=== PATIENT | male | born 1970 | race Caucasian/White ===

== ENCOUNTER 2024-02-02 17:55 | Emergency (ER) | payer SELFPAY ==
[~2024-02-02] VITALS: Ht 177.8 cm; Wt 86.6 kg
[2024-02-02 17:58] VITALS: BP_SYST 158; PULSE 104; RESP 17; TEMP 98.8; O2SAT 97
[2024-02-02 18:48] LABS: BILIRUBIN,URINE NEGATIVE (NEGATIVE); CLARITY/URINE CLEAR (CLEAR); COLOR,URINE YELLOW (YELLOW); GLUCOSE,URINE NEGATIVE (NEGATIVE); KETONES,URINE NEGATIVE (NEGATIVE); LEUKOCYTE ESTERASE ,URINE NEGATIVE (NEGATIVE); NITRITE, URINE NEGATIVE (NEGATIVE); PROTEIN URINE TRACE (NEGATIVE)
[2024-02-02 19:03] LABS: BLOOD, URINE TRACE (NEGATIVE)
[2024-02-02] MEDS: NALOXONE HCL 2 MG/2 ML SYR IVP ONE (19:03)
[2024-02-02] MEDS: NACL 0.9% 2,000 ML IV ONE (19:04)
[2024-02-02 19:06] LABS: BACTERIA,URINE FEW /HPF (None Seen); MUCUS,URINE None Seen /LPF (None Seen); RBC,URINE 0-3 /HPF (0-3); WBC,URINE 0-3 /HPF (0-3)
[2024-02-02] MEDS: ONDANSETRON HCL 4 MG/2 ML VIAL IVP ONE (19:07)
[2024-02-02 19:08] LABS: BARBITURATE, URINE NEGATIVE (NEG <=200)
[2024-02-02 19:09] LABS: BENZODIAZEPINE, URINE NEGATIVE (NEG <=150); CANNABINOID, URINE POSITIVE (NEG <=50); COCAINE, URINE NEGATIVE (NEG <=150); METHAMPHETAMINES SCREEN,URINE POSITIVE (NEG <=500); OPIATE, URINE NEGATIVE (NEG <=100); PHENCYCLIDINE SCREEN,URINE POSITIVE (NEG <=25); URINE AMPHETAMINE POSITIVE (NEG <=500); URINE METHADONE NEGATIVE (NEG <=200); URINE OXYCODONE SCREEN NEGATIVE (NEG <=100)
[2024-02-02 19:15] LABS: BASOPHILS # (AUTO) 0.3 K/uL (0.0-0.2); BASOPHILS % (AUTO) 2.5 % (0.0-2.0); EOSINOPHILS # (AUTO) 0.1 K/uL (0.0-0.4); EOSINOPHILS % (AUTO) 1.2 % (0.0-4.0); HEMATOCRIT 35.4 % (36-54); LYMPHOCYTES # (AUTO) 0.9 K/uL (1.0-5.5); LYMPHOCYTES % (AUTO) 8.8 % (20.5-51.5); MEAN CORPUSCULAR HEMOGLOBIN 29 pg (27-31); MEAN CORPUSCULAR HGB CONC 34 % (32-36); MEAN CORPUSCULAR VOLUME 87 fL (79.0-98.0); MONOCYTES # (AUTO) 0.9 K/uL (0.0-1.0); MONOCYTES % (AUTO) 8.6 % (1.7-9.3); NEUTROPHILS # (AUTO) 7.9 K/uL (1.8-7.7); NEUTROPHILS % (AUTO) 78.9 % (40.0-70.0); PLATELET COUNT (AUTO) 338 K/uL (130-430); RED BLOOD CELL COUNT(AUTO) 4.07 MIL/uL (4.2-6.2); RED CELL DISTRIBUTION WIDTH 14.5 % (9.0-15.0); WHITE BLOOD COUNT (AUTO) 10.1 K/uL (4.8-10.8)
[2024-02-02 19:24] LABS: ALANINE AMINOTRANSFERASE 22 U/L (12-78); ALBUMIN 3.3 g/dL (3.4-4.8); ANION GAP 7 (5-15); ASPARTATE AMINOTRANSFERASE 29 U/L (10-37); BILIRUBIN,DIRECT 0.2 mg/dL (0.0-0.3); CALCIUM 8.3 mg/dL (8.4-11.0); CARBON DIOXIDE 30 mmol/L (23-29); CHLORIDE 106 mmol/L (98-107); GFR AFRICAN AMERICAN 100 mL/min (>90); GLUCOSE 100 mg/dL (74-106); SALICYLATE 1 mg/dL (3-30); SODIUM SERUM 143 mmol/L (136-145); TOTAL BILIRUBIN 0.6 mg/dL (0.0-1.0); TOTAL PROTEIN, SERUM 6.8 g/dL (6.4-8.3); UREA NITROGEN, BLOOD 13 mg/dL (8-21)
[2024-02-02 19:25] LABS: ACETAMINOPHEN < 1 ug/mL (1-30); ALCOHOL, BLOOD < 3 mg/dL (<10); GFR NON AFRICAN-AMERICAN 83 mL/min (>90)
[2024-02-02] MEDS: NALOXONE HCL 0.4 MG/ML AMP (NARCAN) IVP ONE (19:34)
[2024-02-02 20:08] LABS: UR TRICYCLIC ANTIDEPRESSANTS NEGATIVE (NEG <=300)
[2024-02-02] MEDS ORDERED: NALO4SPR NS (21:09)
[2024-02-03 04:50] VITALS: BP_SYST 137; PULSE 68; RESP 16; TEMP 97.8; O2SAT 98
== END 2024-02-03 04:50 | disposition home or self-care (01) ==
LOC: SED 17:55 → EDBD 17:55 → SED 02-03 04:50
DX: T40.411A Poisoning by fentanyl or fentanyl analogs, accidental (unintentional), initial encounter (principal); F19.10 Other psychoactive substance abuse, uncomplicated; R40.4 Transient alteration of awareness; F12.90 Cannabis use, unspecified, uncomplicated; F15.90 Other stimulant use, unspecified, uncomplicated; Y92.89 Other specified places as the place of occurrence of the external cause
CPT/HCPCS: 99291; 96374; 70450; 96361; 96375; 80307; 80076; 80048; 81001; 85025; 36415; 93005; 99292; G0482; J2310; J2405; J7030; G0480; G0481; 81000; 81015